=== PATIENT | female | born 1975 | race Caucasian/White ===

== ENCOUNTER 2019-12-01 23:47 | Emergency (ER) | payer OTHER ==
[2019-12-02 00:06] VITALS: BP 137/80; PULSE 88; TEMP 98.2; BMI 24.3
--- NOTE | 2019-12-02 00:10 | PDOC ---
History of Present Illness - General Chief Complaint: Allergic Reaction Stated Complaint: ALLERGIC RX Time Seen by Provider: 12/02/19 00:09 History Source: Patient Exam Limitations: No Limitations - History of Present Illness Initial Comments: 12/02/19 00:09 Nancy Rea is 44F with OA and no known allergies presenting with allergic reaction. One hour GROUND HAND patient was resting and drinking whiskey she has had before, then took some Ev [place] for gastritis which she has also had before. Soon after began having itchy rash from hands to entire body, as well as SOB and lip swelling. Denies having this reaction before, no known medication allergies, no known food allergies and no new food exposures, denies new soaps or beauty products. No other sick contacts at home. No other symptoms other than SOB, rash. Denies tobacco and drug use. Past History - Medical History Allergies/Adverse Reactions: Allergies Allergy/AdvReac Type Severity Reaction Status Date / Time No Known Allergies Allergy Verified 12/02/19 00:02 Home Medications: Ambulatory Orders Diphenhydramine HCl [Benadryl -] 25 mg PO Q6H #28 capsule 12/02/19 Epinephrine [Epipen 2-Harman] 0.3 mg IJ ASDIR #1 kit 12/02/19 Prednisone [Prednisone 50 MG TABLETS] 50 mg PO DAILY #4 tablet 12/02/19 - Reproductive History Is Patient Now?: No - Psycho-Social/Smoking History Smoking History: Never smoked Information on smoking cessation initiated: No - Substance Abuse Hx (Audit-C & DAST Scrn) How often the patient has a drink containing alcohol: Never Score: In Men: 4 or > Positive; In Women: 3 or > Positive: 0 Screen Result (Pos requires Nsg. Audit-10AR): Negative In the last yr the pt used illegal drug/Rx for NonMed reason: No Score: Yes response is considered Positive: 0 Screen Result (Positive result requires Nsg. DAST-10): Negative Review of Systems - Review of Systems Able to Perform ROS?: Yes Constitutional: No: Symptoms Reported HEENTM: No: Symptoms Reported Respiratory: Yes: Shortness of Breath, SOB with Exertion, SOB at Rest. No: Stridor, Wheezing, Productive cough Cardiac (ROS): No: Chest Pain, Palpitations ABD/GI: No: Symptoms Reported, Poor Appetite, Poor Fluid Intake : No: Symptoms Reported Musculoskeletal: No: Symptoms Reported Integumentary: Yes: Flushing, Pruritus, Rash Neurological: No: Symptoms reported Endocrine: No: Symptoms Reported Hematologic/Lymphatic: No: Symptoms Reported All Other Systems: Reviewed and Negative *Physical Exam - Vital Signs Last Vital Signs Temp Pulse Resp BP Pulse Ox 98.2 F 88 22 H 137/80 98 12/01/19 23:56 12/01/19 23:56 12/01/19 23:56 12/01/19 23:56 12/01/19 23:56 - Physical Exam General Appearance: Yes: Nourished, Appropriately Dressed, Other (dyed red hair, resting in bed scratching furiously at arms, no respiratory distress). No: Ap parent Distress HEENT: positive: EOMI, TUAN, Normal Voice, Symmetrical, Pharynx Normal, Hearing Grossly Normal, Other (lips swollen, no uvular deviation or oropharyngeal swell ing). negative: Scleral Icterus (R), Scleral Icterus (L), Pharyngeal Erythema, Tonsillar Exudate, Tonsillar Erythema Neck: positive: Trachea midline, Normal Thyroid, Supple. negative: Tender, Lymphadenopathy (R), Lymphadenopathy (L), Tender lateral, Tender midline Respiratory/Chest: positive: Lungs Clear, Normal Breath Sounds, Other (lungs CTAB). negative: Chest Tender, Respiratory Distress, Accessory Muscle Use, Decreased Breath Sounds, Crackles, Rales, Rhonchi, Stridor, Wheezing Cardiovascular: positive: Regular Rhythm, Regular Rate. negative: Murmur, Tachycardia Gastrointestinal/Abdominal: positive: Normal Bowel Sounds, Flat, Soft. negative: Tender, Organomegaly, Pulsatile Mass, Guarding, Rebound, Tenderness Musculoskeletal: positive: Normal Inspection. negative: CVA Tenderness, Decreased Range of Motion Extremity: positive: Normal Capillary Refill, Normal Inspection, Normal Range of Motion, Pelvis Stable. negative: Tender, Pedal Edema, Swelling, Calf Tenderness Integumentary: positive: Normal Color, Dry, Warm, Rash (wheal/flare urticarial rash to hands, legs, chest, back) Neurologic: positive: Fully Oriented, Alert, Normal Mood/Affect, Normal Response ED Treatment Course - LABORATORY CBC & Chemistry Diagram: 12/02/19 00:45 12/02/19 00:45 Medical Decision Making - Medical Decision Making 12/02/19 00:09 Patient presents with urticarial allergic reaction to unknown allergen, no respiratory compromise. VSS but appears very uncomfortable, lungs CTAB. Getting CMP/CBC/ and giving Benadryl 50mg, Solu-Medrol, and Pepcid for treatment of allergic reaction. Not at the point of needing epinephrine. 12/02/19 01:32 Patient re-evaluated, feeling much better after medicines. 12/02/19 01:46 Labs notable for: - Hgb >18, nonspecific, giving 1L IVF - CMP WNL - negative Continuing to monitor. Send Rx for prednisone, Benadryl, and Epi-Pen to pharmacy. 12/02/19 04:33 Feeling much better after 4 hours observation in ED, rash gone, no longer pruritic. Discussed importance of EpiPen pickup before going home and recommended allergy testing with PMD. Sent Benadryl and Prednisone to pharmacy. Discussed with patient in American who verbalizes understanding. D/C home, family will pick her up. Discharge - Discharge Information Problems reviewed: Yes Clinical Impression/Diagnosis: Allergic reaction Qualifiers: Encounter type: initial encounter Qualified Code(s): T78.40XA - Allergy, unspecified, initial encounter Condition: Guarded Disposition: HOME - Additional Discharge Information Prescriptions: Diphenhydramine HCl [Benadryl -] 25 mg PO Q6H #28 capsule Epinephrine [Epipen 2-Harman] 0.3 mg IJ ASDIR #1 kit Prednisone [Prednisone 50 MG TABLETS] 50 mg PO DAILY #4 tablet - Follow up/Referral Referrals: ON STAFF,NOT [Primary Care Provider] - - Patient Discharge Instructions Patient Printed Discharge Instructions: DI for General Allergic Reactions Additional Instructions: Hoy te atendieron por zenaida reaccin alrgica. Te dimos esteroides, Benadryl y Pepcid y te sentiste mejor. No est homar a qu es alrgico. Evite los medicamentos y los alcoholes que oleary probado hoy, ya que pueden provocar la misma reaccin. Se oleary enviado zenaida receta de Epi-Pen, Benadryl y algunos esteroides a [facility] en [place]. Debe recogerlo antes de irse a casa y puede morir si no lo hace. Si vuelve a tener zenaida reaccin alrgica, inyecte la pluma en rivera pierna. Contine tomando Benadryl y prednisona travis los prximos suresh para disminuir devendra sntomas. Consulte a rivera atencin primaria para un seguimiento adicional. Si experimenta el mismo sarpullido, dificultad para respirar, dolor en el pecho o cualquier otro sntoma nuevo o preocupante, regrese a la jeff de emergencias. Today you were seen for an allergic reaction. We gave you steroids, Benadryl, and Pepcid and you felt better. It is not clear what you are allergic to. Avoid the medicines and alcohols you have tried today, as they may cause the same reaction. An Epi-Pen prescription, Benadryl, and some steroids have been sent to the [facility] on [facility]. You must pick this up before you go home and you may if you do not. If you have an allergic reaction again, inject the pen into your leg. Please continue to take the Benadryl and prednisone these over the next few days to decrease your symptoms. See your primary care for further fol low-up. If you experience the same rash, difficulty breathing, chest pain, or any other new or concerning symptoms, please return to the emergency room. - Post Discharge Activity
--- NOTE | 2019-12-02 00:14 | PDOC ---
Attending Attestation - Resident Resident Name: Charlie Anderson - ED Attending Attestation I have performed the following: I have examined & evaluated the patient, The case was reviewed & discussed with the resident, I agree w/resident's findings & plan, Exceptions are as noted - HPI HPI: 12/02/19 00:12 This 44 yo female p/w generalized hives - Physicial Exam PE: 12/02/19 00:15 44 yo female p/w generalized itching head ncat Oropharynx uvula midline, no edema lungs cta b/l [facility] [id number] abdomen nontender skin warm and dry extremities no edema.generalized hives neuro axox3 psych appropriate 12/02/19 00:48 - Medical Decision Making 12/02/19 00:55 Tonight the pt had drank whiskey and later had upset stomach so she took Ev seltzer for her discomfort. She developed generalized hives about an hour later 12/02/19 00:58 she has no known food allergies Discharge - Discharge Information Problems reviewed: Yes Clinical Impression/Diagnosis: Allergic reaction Qualifiers: Encounter type: initial encounter Qualified Code(s): T78.40XA - Allergy, unspecified, initial encounter Condition: Guarded Disposition: HOME - Additional Discharge Information Prescriptions: Diphenhydramine HCl [Benadryl -] 25 mg PO Q6H #28 capsule Epinephrine [Epipen 2-[place]n] 0.3 mg IJ ASDIR #1 kit Prednisone [Prednisone 50 MG TABLETS] 50 mg PO DAILY #4 tablet - Follow up/Referral Referrals: ON STAFF,NOT [Primary Care Provider] - - Patient Discharge Instructions Patient Printed Discharge Instructions: DI for General Allergic Reactions Additional Instructions: Hoy te atendieron por zenaida reaccin alrgica. Te dimos esteroides, Benadryl y Pepcid y te sentiste mejor. No est homar a qu es alrgico. Evite los medicamentos y los alcoholes que oleary probado hoy, ya que pueden provocar la misma reaccin. Se oleary enviado zenaida receta de Epi-Pen, Benadryl y algunos esteroides a [facility] en [place]. Debe recogerlo antes de irse a casa y puede morir si no lo hace. Si vuelve a tener zenaida reaccin alrgica, inyecte la pluma en rivera pierna. Contine tomando Benadryl y prednisona travis los prximos suresh para disminuir devendra sntomas. Consulte a rivera atencin primaria para un seguimiento adicional. Si experimenta el mismo sarpullido, dificultad para respirar, dolor en el pecho o cualquier otro sntoma nuevo o preocupante, regrese a la jeff de emergencias. Today you were seen for an allergic reaction. We gave you steroids, Benadryl, and Pepcid and you felt better. It is not clear what you are allergic to. Avoid the medicines and alcohols you have tried today, as they may cause the same reaction. An Epi-Pen prescription, Benadryl, and some steroids have been sent to the [facility]. You must pick this up before you go home and you may if you do not. If you have an allergic reaction again, inject the pen into your leg. Please continue to take the Benadryl and prednisone these over the next few days to decrease your symptoms. See your primary care for further follow-up. If you experience the same rash, difficulty breathing, chest pain, or any other new or concerning symptoms, please return to the emergency room. - Post Discharge Activity
[2019-12-02] MEDS ORDERED: methylPREDNISolone NA SUCC 125 MG/2 ML VIAL IVPB ONE (00:24)
[2019-12-02] MEDS ORDERED: FAMOTIDINE 20 MG/50 ML IVPB 50 ML IVPB ONE (00:24)
[2019-12-02] MEDS ORDERED: FAMOTIDINE 20 MG/50 ML IVPB 20 MG/50 ML MG IVPB ONE ×2 (00:28→00:32)
[2019-12-02] MEDS ORDERED: methylPREDNISolone NA SUCC 125 MG/2 ML VIAL ONE (00:32)
[2019-12-02 01:08] LABS: BASO % 0.6 % (0-2.0); EOS % 1.8 % (0-4.5); HEMATOCRIT 56.2 % (32.4-45.2); HEMOGLOBIN 18.4 GM/dL (10.7-15.3); LYMPH % 36.2 % (8-40); MCH 29.3 pg (25.7-33.7); MCHC 32.8 g/dl (32.0-36.0); MEAN CELL VOLUME 89.3 fl (80-96); MEAN PLT VOLUME 8.4 fl (7.5-11.1); MONO % 7.4 % (3.8-10.2); PLATELET COUNT 310 K/MM3 (134-434); RBC 6.29 M/mm3 (3.60-5.2); RDW 13.4 % (11.6-15.6)
[2019-12-02 01:37] LABS: ALBUMIN 3.3 g/dl (3.4-5.0); BILIRUBIN,TOTAL 0.4 mg/dL (0.2-1); BLOOD UREA NITROGEN 13.9 mg/dL (7-18); CALCIUM 8.7 mg/dL (8.5-10.1); POTASSIUM 4.1 mmol/L (3.5-5.1); TOT PROT 6.8 g/dl (6.4-8.2)
[2019-12-02] MEDS ORDERED: SODIUM CHLORIDE 0.9% 500 ML INFUS.BAG IV ONE (02:00)
== END 2019-12-02 04:45 | disposition home or self-care (01) ==
LOC: JER 23:47
PROC: 3E033GC Introduction of Other Therapeutic Substance into Peripheral Vein, Percutaneous Approach (ICD-10-PCS; principal; 2019-12-01)
DX: T78.40XA Allergy, unspecified, initial encounter (principal)
CPT/HCPCS: 36415; 80053; 84703; 85025; 99284-25

== ENCOUNTER 2022-02-03 21:34 | Emergency (ER) | payer OTHER ==
[2022-02-03 21:47] VITALS: BP 138/90; PULSE 87; RESP 20; TEMP 98.3; BMI 23.7
[2022-02-03] MEDS ORDERED: ACETAMINOPHEN 500 MG TABLET (FP) PO ONE (22:07)
== END 2022-02-04 00:23 | disposition home or self-care (01) ==
LOC: JER 21:34
DX: J06.9 Acute upper respiratory infection, unspecified (principal)
CPT/HCPCS: 0241U-QW; 87651; 99283-25